=== PATIENT | female | born 1985 | race African-American/Black ===

== ENCOUNTER 2016-07-03 01:15 | Emergency (ER) | payer OTHER ==
[~2016-07-03] VITALS: Ht 149.9 cm; Wt 79.5 kg
[~2016-07-03 01:15] MED LIST: HYDROCODON-ACE1 EAC7 PO; MOBIC7.5 MG PO; MOTRIN800 MG PO; NAPROXEN500 MG PO
[2016-07-03 01:22] VITALS: BP 155/107
[2016-07-03 02:24] LABS: HEMATOCRIT 39.8 % (36.0-46.0); MCHC 33.7 G/DL (30.0-36.0); MCV 80.2 FL (83-99); MEAN PLAT.VOLUME 11.8 uM^3 (9.5-12.4); PLATELET COUNT 253 K/uL (156-360); RBC DIS.WIDTH-SD 37.9 % (39-53); RED BLOOD COUNT 4.96 M/uL (3.80-5.20); WHITE BLOOD COUNT 10.1 K/uL (4.1-10.2)
[2016-07-03 02:32] LABS: CHLORIDE 107 mEq/L (99-109); POTASSIUM 3.7 mEq/L (3.7-5.4); SODIUM 141 mEq/L (136-147)
[2016-07-03 02:33] LABS: GLUCOSE 106 mg/dL (70-99)
[2016-07-03 02:35] LABS: ANION GAP 10 MEQ/L (2-14)
[2016-07-03 02:37] LABS: GFR ESTIMATE (CALCULATED) > 59 mL/min/
[2016-07-03 02:38] LABS: UREA NITROGEN (BUN) 13 mg/dL (9-23)
[2016-07-03 02:41] LABS: TROP-I INTERPRETATION NEGATIVE; TROPONIN-I < 0.01 ng/mL (0.0-0.30)
== END 2016-07-03 03:25 | disposition left against medical advice (07) ==
LOC: EME 01:15
DX: R07.9 Chest pain, unspecified (principal); Z53.21 Procedure and treatment not carried out due to patient leaving prior to being seen by health care provider
CPT/HCPCS: 71020; 80048; 84484; 85027; 93005